=== PATIENT | female | born 1935 | race Caucasian/White ===

== ENCOUNTER 2017-05-12 15:11 | Inpatient (IN) | payer MEDICARE, OTHER ==
--- NOTE | 2017-05-12 16:39 | History and Physical Report ---
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 Developed left hip pain 3 weeks prior to evaluation and was found to have an incomplete left femoral neck hip fracture on MRI scan. Patient denies any recent falls or trauma. Had precutaneous hip pinning done. No noted intra or postoperative complications. Patient continues to have some pain with ambulation and feels unsteady on her feet. Has been transferred to this institution for further rehab services. 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: CVA (during surgery in 2008, no residual), Dementia (mild) Musculoskeletal: Other (paget's disease) Endocrine: Diabetes (type 2) - Past Surgical History Past Surgical History: Cataract Removal (OU), Total Knee Replacement (left), Other (benign ventricular tumor removed, cardiac stent) - Past Family History Mother Family History: Cancer (leukemia), Father Family History: CAD, Brother 1 Family History: Cancer, Other (hx of DVT) - Past Social History Smoke: No Alcohol: None Drugs: None Lives: With Family (daughter) Domestic Violence: Negative - Health Maintenance Health Maintenance: Influenza Vaccine. denies: Pneumococcal Vaccine Pneumonia Vaccine: No Resuscitation Status: Full code - Unable to Obtain History Unable to Obtain: No Review of Systems - Review of Systems Constitutional: negative: Fever, Chills Eyes: negative: pain, vision change ENT: negative: Ear Pain, Ear Discharge, Nose Pain, Nose Discharge, Nose Congestion, Mouth Pain, Throat Pain Respiratory: negative: Cough, Dry, Shortness of Breath, Hemoptysis, SOB with Excertion, Pleuritic Pain, Sputum, Wheezing Cardiovascular: negative: Chest Pain, Palpitations, Orthopnea, Paroxysmal Noc. Dyspnea, Light Headedness Gastrointestinal: negative: Nausea, Vomiting, Abdominal Pain, Diarrhea, Constipation, Melena, Hematochezia Genitourinary: negative: Dysuria, Frequency, Incontinence, Hematuria, Retention Musculoskeletal: Leg Pain (left hip and knee). negative: Neck Pain, Shoulder Pain, Arm Pain Skin: negative: Rash Neurological: Confusion (mild). negative: Weakness, Numbness, Incoordination - Medications/Allergies Allergies/Adverse Reactions: Allergies Allergy/AdvReac Type Severity Reaction Status Date / Time Penicillins Allergy Severe Anaphylaxis Verified 05/13/17 08:25 latex Allergy Intermediate Itchy Skin Verified 05/13/17 08:25 Home Medications: Home Medications Aspirin [Oralia] 325 mg PO BID 05/12/17 Benazepril HCl [Lotensin] 40 mg PO DAILY 05/12/17 Calcium Citrate [Calcitrate] 200 mg PO DAILY 05/12/17 Carvedilol [Coreg] 12.5 mg PO BID 05/12/17 Cyanocobalamin (Vitamin B-12) [Vitamin B-12] 2,500 mcg SL DAILY 05/12/17 Donepezil HCl [Donepezil HCl] 10 mg PO HS 05/12/17 Furosemide [Lasix] 40 mg PO DAILY 05/12/17 Glimepiride [Glimepiride] 2 mg PO DAILY 05/12/17 Hydrocodone/Acetaminophen [[place] 5-325 Tablet] 1 each Q6 PRN 05/12/17 Metformin HCl [Glucophage] 1,000 mg PO BID 05/12/17 Multivit with Calcium,Iron,Min [Tab A Leobardo] 1 each PO DAILY 05/12/17 Naproxen [Naproxen] 250 mg PO Q12 PRN 05/12/17 Pravastatin Sodium [Pravastatin Sodium] 40 mg PO DAILY 05/12/17 Sennosides/Docusate Sodium [Docusate Sodium-Senna Tablet] 2 each PO HS 05/12/17 amLODIPine BESYLATE [Norvasc] 5 mg PO DAILY 05/12/17 Exam - Exam General: Alert, Oriented to Person, Oriented to Place, Oriented to Time, Cooperative, No acute distress HEENT: Atraumatic, PERRLA, EOMI, Mouth Mucous membr. moist/[place], Nose Mucous membr. moist/[place] Neck: Normal Range of Motion Lungs: Clear to auscultation, Normal air movement, Speaks full Sentences Cardiovascular: Regular rate, Normal S1, Normal S2, No murmurs. No: Gallops, Rubs, Murmur Abdomen: Normal bowel sounds, Soft, No tenderness, No hepatospenomegaly, No masses. No: Distended Integumentary: Normal, [place], Warm, Dry Extremities: No clubbing, No cyanosis, No edema, Normal pulses, No tenderness/ swelling Neurological: Normal gait, Normal speech, Strength Equal Bilat, Normal tone, Sensation intact, Cranial nerves 3-12 NL, Reflexes 2+ Psych/Mental Status: Mental status NL, Mood NL, Appropriate Affect, Intact Judgment Assessment/Plan - Assessment/Plan (1) Gait disturbance Status: Acute Current Visit: Yes Assessment: Will start OT and PT, hope to return to home (2) Fracture of left hip Status: Acute Current Visit: Yes Comment: Incomplete due to Paget's disease , precutaneous pinning done (3) Diabetes type 2, controlled Status: Acute Current Visit: Yes Qualifiers: Diabetes mellitus complication status: without complication 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 insulin use: without chcf use Qualified Code(s): E11.9 - Type 2 diabetes mellitus without complications Assessment: Patient has been on sliding scale insulin since admission, will continue at this time (4) Essential hypertension Status: Acute Current Visit: Yes Assessment: Will continue with home meds (5) Paget's disease of bone Status: Acute Current Visit: Yes Assessment: stable (6) Dementia Status: Acute Current Visit: Yes Qualifiers: Dementia type: Alzheimer's disease Assessment: stable VTE Assessment - RISK FACTOR SCORE VTE RISK FACTOR SCORES: AGE OVER 60 YEARS, HIP, PELVIS, OR LEG FX - RISK VTE MODERATE RISK: SCORE OF 2 (RISK PROXIMAL DVT 2-4%) PROPHYAXIS NEEDED ( Pateint is on asprin therapy for VTE prophylaxis)
[2017-05-12] MEDS ORDERED: LISINOPRIL 20 MG TABLET PO ONE (16:45)
[2017-05-12] MEDS ORDERED: ACETAMINOPHEN 500 MG TABLET PO PRN (16:49)
[2017-05-12] MEDS ORDERED: traMADol HCL 50 MG TABLET PO SCH (17:00)
[2017-05-12] MEDS ORDERED: SIMVASTATIN 40 MG TABLET ONE (18:01)
[2017-05-12] MEDS: traMADol HCL 50 MG TABLET PO PRN ×2 (18:09→22:35)
[2017-05-12 18:35] VITALS: BMI 32.3
[2017-05-12] MEDS: DONEPEZIL HCL 5 MG TABLET PO SCH (19:52)
[2017-05-12] MEDS: ASPIRIN 325 MG TABLET PO SCH (19:53)
[2017-05-12] MEDS: CARVEDILOL 12.5 MG TABLET PO SCH (19:53)
[2017-05-12] MEDS: CYANOCOBALAMIN 1,000 MCG TABLET PO SCH (19:54)
[2017-05-12] MEDS: SIMVASTATIN 20 MG TABLET PO SCH (19:54)
[2017-05-12] MEDS: SENNOSIDES/DOCUSATE SODIUM 1 EACH TABLET PO SCH (19:54)
[2017-05-12] MEDS: NAPROXEN 250 MG TABLET PO PRN (20:05)
[2017-05-13] MEDS: GLIMEPIRIDE 2 MG TABLET PO SCH (07:25)
[2017-05-13] MEDS: INSULIN REGULAR, HUMAN 100 UNIT/ML 3ML VIAL SQ SCH ×3 (07:32→17:13)
[2017-05-13] MEDS: ASPIRIN 325 MG TABLET PO SCH ×2 (08:19→19:23)
[2017-05-13] MEDS: CARVEDILOL 12.5 MG TABLET PO SCH ×2 (08:20→19:24)
[2017-05-13] MEDS: amLODIPine BESYLATE 5 MG TABLET PO SCH (08:20)
[2017-05-13] MEDS: FUROSEMIDE 40 MG TABLET PO SCH (08:20)
[2017-05-13] MEDS: CALCIUM CARB 500 MG TAB.CHEW PO SCH (08:21)
[2017-05-13] MEDS: MULTIVITAMIN 1 EACH TABLET PO SCH (08:21)
[2017-05-13] MEDS: CYANOCOBALAMIN 1,000 MCG TABLET PO SCH ×2 (08:21→19:24)
[2017-05-13] MEDS: SIMVASTATIN 20 MG TABLET PO SCH (19:25)
[2017-05-13] MEDS: DONEPEZIL HCL 5 MG TABLET PO SCH (19:27)
[2017-05-13] MEDS: SENNOSIDES/DOCUSATE SODIUM 1 EACH TABLET PO SCH (19:27)
[2017-05-13] MEDS ORDERED: DOCUSATE SODIUM 100 MG CAPSULE ONE (21:38)
[2017-05-14] MEDS: traMADol HCL 50 MG TABLET PO PRN ×4 (02:30→22:57)
[2017-05-14] MEDS ORDERED: FUROSEMIDE 20 MG TABLET PO ONE (04:45)
[2017-05-14] MEDS ORDERED: CALCIUM CARB 500/VIT D 200 1 EACH TABLET ONE (04:46)
[2017-05-14] MEDS: NAPROXEN 250 MG TABLET PO PRN (06:07)
[2017-05-14] MEDS: GLIMEPIRIDE 2 MG TABLET PO SCH (07:13)
[2017-05-14] MEDS: INSULIN REGULAR, HUMAN 100 UNIT/ML 3ML VIAL SQ SCH ×3 (07:18→16:45)
[2017-05-14] MEDS: CARVEDILOL 12.5 MG TABLET PO SCH ×2 (08:29→19:57)
[2017-05-14] MEDS: ASPIRIN 325 MG TABLET PO SCH ×2 (08:29→19:57)
[2017-05-14] MEDS: FUROSEMIDE 40 MG TABLET PO SCH (08:30)
[2017-05-14] MEDS: MULTIVITAMIN 1 EACH TABLET PO SCH (08:31)
[2017-05-14] MEDS: amLODIPine BESYLATE 5 MG TABLET PO SCH (08:31)
[2017-05-14] MEDS: CYANOCOBALAMIN 1,000 MCG TABLET PO SCH ×2 (08:32→19:58)
[2017-05-14] MEDS: CALCIUM CARB 500 MG TAB.CHEW PO SCH (08:37)
[2017-05-14] MEDS ORDERED: SIMVASTATIN 40 MG TABLET ONE (15:20)
[2017-05-14] MEDS: DONEPEZIL HCL 5 MG TABLET PO SCH (19:56)
[2017-05-14] MEDS: SENNOSIDES/DOCUSATE SODIUM 1 EACH TABLET PO SCH (19:58)
[2017-05-14] MEDS: SIMVASTATIN 20 MG TABLET PO SCH (19:59)
[2017-05-15] MEDS: NAPROXEN 250 MG TABLET PO PRN ×2 (03:08→22:47)
[2017-05-15] MEDS: traMADol HCL 50 MG TABLET PO PRN ×4 (03:08→22:47)
[2017-05-15] MEDS: INSULIN REGULAR, HUMAN 100 UNIT/ML 3ML VIAL SQ SCH ×3 (07:43→16:43)
[2017-05-15] MEDS: GLIMEPIRIDE 2 MG TABLET PO SCH (07:43)
[2017-05-15] MEDS: ASPIRIN 325 MG TABLET PO SCH ×2 (08:48→20:27)
[2017-05-15] MEDS: CARVEDILOL 12.5 MG TABLET PO SCH ×2 (08:49→20:32)
[2017-05-15] MEDS: amLODIPine BESYLATE 5 MG TABLET PO SCH (08:50)
[2017-05-15] MEDS: FUROSEMIDE 40 MG TABLET PO SCH (08:50)
[2017-05-15] MEDS: CYANOCOBALAMIN 1,000 MCG TABLET PO SCH ×2 (08:52→20:32)
[2017-05-15] MEDS: MULTIVITAMIN 1 EACH TABLET PO SCH (08:52)
[2017-05-15] MEDS: CALCIUM CARB 500 MG TAB.CHEW PO SCH (08:53)
[2017-05-15 12:51] LABS: BASOPHILS % 0.7 (0.0-1.5); EOSINOPHILS % 3.8 % (0.0-6.8); MEAN CORPUSCULAR HEMOGLOBIN 29.8 pg (28.0-34.0); NEUTROPHILS # 5.7 # k/uL (1.4-7.7)
[2017-05-15 13:08] LABS: eGFR (African) > 60; eGFR (Non-African) > 60
[2017-05-15] MEDS: DONEPEZIL HCL 5 MG TABLET PO SCH (20:27)
[2017-05-15] MEDS: SENNOSIDES/DOCUSATE SODIUM 1 EACH TABLET PO SCH (20:29)
[2017-05-15] MEDS: SIMVASTATIN 20 MG TABLET PO SCH (20:30)
[2017-05-16] MEDS: GLIMEPIRIDE 2 MG TABLET PO SCH (07:40)
[2017-05-16] MEDS: INSULIN REGULAR, HUMAN 100 UNIT/ML 3ML VIAL SQ SCH ×3 (07:41→16:40)
[2017-05-16] MEDS: amLODIPine BESYLATE 5 MG TABLET PO SCH (08:36)
[2017-05-16] MEDS: CALCIUM CARB 500 MG TAB.CHEW PO SCH (08:36)
[2017-05-16] MEDS: FUROSEMIDE 40 MG TABLET PO SCH (08:36)
[2017-05-16] MEDS: ASPIRIN 325 MG TABLET PO SCH ×2 (08:36→19:43)
[2017-05-16] MEDS: MULTIVITAMIN 1 EACH TABLET PO SCH (08:36)
[2017-05-16] MEDS: CARVEDILOL 12.5 MG TABLET PO SCH ×2 (08:36→19:45)
[2017-05-16] MEDS: CYANOCOBALAMIN 1,000 MCG TABLET PO SCH ×2 (08:37→19:45)
[2017-05-16] MEDS: SIMVASTATIN 20 MG TABLET PO SCH (19:44)
[2017-05-16] MEDS: DONEPEZIL HCL 5 MG TABLET PO SCH (19:44)
[2017-05-16] MEDS: SENNOSIDES/DOCUSATE SODIUM 1 EACH TABLET PO SCH (19:46)
[2017-05-17] MEDS: NAPROXEN 250 MG TABLET PO PRN ×2 (04:15→19:24)
[2017-05-17] MEDS: traMADol HCL 50 MG TABLET PO PRN ×3 (04:15→23:47)
[2017-05-17] MEDS: GLIMEPIRIDE 2 MG TABLET PO SCH (07:25)
[2017-05-17] MEDS: INSULIN REGULAR, HUMAN 100 UNIT/ML 3ML VIAL SQ SCH ×3 (07:57→16:38)
[2017-05-17] MEDS: CARVEDILOL 12.5 MG TABLET PO SCH ×2 (08:49→19:25)
[2017-05-17] MEDS: ASPIRIN 325 MG TABLET PO SCH ×2 (08:49→19:25)
[2017-05-17] MEDS: FUROSEMIDE 40 MG TABLET PO SCH (08:49)
[2017-05-17] MEDS: MULTIVITAMIN 1 EACH TABLET PO SCH (08:50)
[2017-05-17] MEDS: CALCIUM CARB 500 MG TAB.CHEW PO SCH (08:50)
[2017-05-17] MEDS: amLODIPine BESYLATE 5 MG TABLET PO SCH (08:50)
[2017-05-17] MEDS: CYANOCOBALAMIN 1,000 MCG TABLET PO SCH ×2 (08:50→19:24)
[2017-05-17] MEDS: SENNOSIDES/DOCUSATE SODIUM 1 EACH TABLET PO SCH (19:24)
[2017-05-17] MEDS: SIMVASTATIN 20 MG TABLET PO SCH (19:24)
[2017-05-17] MEDS: DONEPEZIL HCL 5 MG TABLET PO SCH (19:25)
[2017-05-18] MEDS: INSULIN REGULAR, HUMAN 100 UNIT/ML 3ML VIAL SQ SCH ×3 (07:40→17:02)
[2017-05-18] MEDS: GLIMEPIRIDE 2 MG TABLET PO SCH (07:41)
[2017-05-18] MEDS: CYANOCOBALAMIN 1,000 MCG TABLET PO SCH ×2 (09:55→20:03)
[2017-05-18] MEDS: NAPROXEN 250 MG TABLET PO PRN ×2 (09:55→22:38)
[2017-05-18] MEDS: ASPIRIN 325 MG TABLET PO SCH ×2 (09:55→20:01)
[2017-05-18] MEDS: CARVEDILOL 12.5 MG TABLET PO SCH ×2 (09:55→20:02)
[2017-05-18] MEDS: MULTIVITAMIN 1 EACH TABLET PO SCH (09:55)
[2017-05-18] MEDS: CALCIUM CARB 500 MG TAB.CHEW PO SCH (09:55)
[2017-05-18] MEDS: amLODIPine BESYLATE 5 MG TABLET PO SCH (09:55)
[2017-05-18] MEDS: FUROSEMIDE 40 MG TABLET PO SCH (09:55)
[2017-05-18] MEDS: DONEPEZIL HCL 5 MG TABLET PO SCH (20:01)
[2017-05-18] MEDS: SENNOSIDES/DOCUSATE SODIUM 1 EACH TABLET PO SCH (20:02)
[2017-05-18] MEDS: SIMVASTATIN 20 MG TABLET PO SCH (20:03)
[2017-05-18] MEDS: traMADol HCL 50 MG TABLET PO PRN (22:38)
[2017-05-19] MEDS: NAPROXEN 250 MG TABLET PO PRN ×2 (08:10→20:08)
[2017-05-19] MEDS: CARVEDILOL 12.5 MG TABLET PO SCH ×2 (08:10→20:06)
[2017-05-19] MEDS: CYANOCOBALAMIN 1,000 MCG TABLET PO SCH ×2 (08:10→20:05)
[2017-05-19] MEDS: GLIMEPIRIDE 2 MG TABLET PO SCH (08:10)
[2017-05-19] MEDS: ASPIRIN 325 MG TABLET PO SCH ×2 (08:10→20:06)
[2017-05-19] MEDS: INSULIN REGULAR, HUMAN 100 UNIT/ML 3ML VIAL SQ SCH ×3 (08:10→16:38)
[2017-05-19] MEDS: MULTIVITAMIN 1 EACH TABLET PO SCH (08:11)
[2017-05-19] MEDS: FUROSEMIDE 40 MG TABLET PO SCH (08:11)
[2017-05-19] MEDS: amLODIPine BESYLATE 5 MG TABLET PO SCH (08:11)
[2017-05-19] MEDS: CALCIUM CARB 500 MG TAB.CHEW PO SCH (08:11)
[2017-05-19] MEDS: SIMVASTATIN 20 MG TABLET PO SCH (20:03)
[2017-05-19] MEDS: SENNOSIDES/DOCUSATE SODIUM 1 EACH TABLET PO SCH (20:05)
[2017-05-19] MEDS: DONEPEZIL HCL 5 MG TABLET PO SCH (20:06)
[2017-05-20] MEDS: GLIMEPIRIDE 2 MG TABLET PO SCH (05:54)
[2017-05-20] MEDS: INSULIN REGULAR, HUMAN 100 UNIT/ML 3ML VIAL SQ SCH ×3 (06:00→16:23)
[2017-05-20] MEDS: CARVEDILOL 12.5 MG TABLET PO SCH ×2 (08:23→21:16)
[2017-05-20] MEDS: ASPIRIN 325 MG TABLET PO SCH ×2 (08:23→21:15)
[2017-05-20] MEDS: CALCIUM CARB 500 MG TAB.CHEW PO SCH (08:24)
[2017-05-20] MEDS: amLODIPine BESYLATE 5 MG TABLET PO SCH (08:24)
[2017-05-20] MEDS: MULTIVITAMIN 1 EACH TABLET PO SCH (08:24)
[2017-05-20] MEDS: FUROSEMIDE 40 MG TABLET PO SCH (08:24)
[2017-05-20] MEDS: CYANOCOBALAMIN 1,000 MCG TABLET PO SCH ×2 (08:25→21:17)
[2017-05-20] MEDS: DONEPEZIL HCL 5 MG TABLET PO SCH (21:14)
[2017-05-20] MEDS: SIMVASTATIN 20 MG TABLET PO SCH (21:17)
[2017-05-20] MEDS: SENNOSIDES/DOCUSATE SODIUM 1 EACH TABLET PO SCH (21:30)
[2017-05-21] MEDS: GLIMEPIRIDE 2 MG TABLET PO SCH (06:08)
[2017-05-21] MEDS: INSULIN REGULAR, HUMAN 100 UNIT/ML 3ML VIAL SQ SCH ×3 (07:03→16:44)
[2017-05-21] MEDS: CARVEDILOL 12.5 MG TABLET PO SCH ×2 (09:25→20:14)
[2017-05-21] MEDS: ASPIRIN 325 MG TABLET PO SCH ×2 (09:25→20:14)
[2017-05-21] MEDS: MULTIVITAMIN 1 EACH TABLET PO SCH (09:26)
[2017-05-21] MEDS: CALCIUM CARB 500 MG TAB.CHEW PO SCH (09:26)
[2017-05-21] MEDS: amLODIPine BESYLATE 5 MG TABLET PO SCH (09:26)
[2017-05-21] MEDS: FUROSEMIDE 40 MG TABLET PO SCH (09:26)
[2017-05-21] MEDS: CYANOCOBALAMIN 1,000 MCG TABLET PO SCH ×2 (09:26→20:15)
[2017-05-21] MEDS: DONEPEZIL HCL 5 MG TABLET PO SCH (20:14)
[2017-05-21] MEDS: SIMVASTATIN 20 MG TABLET PO SCH (20:15)
[2017-05-21] MEDS: SENNOSIDES/DOCUSATE SODIUM 1 EACH TABLET PO SCH (20:15)
[2017-05-22] MEDS: INSULIN REGULAR, HUMAN 100 UNIT/ML 3ML VIAL SQ SCH ×3 (07:41→17:08)
[2017-05-22] MEDS: GLIMEPIRIDE 2 MG TABLET PO SCH (07:41)
[2017-05-22] MEDS: ASPIRIN 325 MG TABLET PO SCH ×2 (08:34→20:05)
[2017-05-22] MEDS: CARVEDILOL 12.5 MG TABLET PO SCH ×2 (08:34→20:05)
[2017-05-22] MEDS: FUROSEMIDE 40 MG TABLET PO SCH (08:34)
[2017-05-22] MEDS: amLODIPine BESYLATE 5 MG TABLET PO SCH (08:34)
[2017-05-22] MEDS: CYANOCOBALAMIN 1,000 MCG TABLET PO SCH ×2 (08:35→20:06)
[2017-05-22] MEDS: MULTIVITAMIN 1 EACH TABLET PO SCH (08:35)
[2017-05-22] MEDS: CALCIUM CARB 500 MG TAB.CHEW PO SCH (08:35)
[2017-05-22] MEDS: NAPROXEN 250 MG TABLET PO PRN (08:36)
[2017-05-22] MEDS: DONEPEZIL HCL 5 MG TABLET PO SCH (20:05)
[2017-05-22] MEDS: SIMVASTATIN 20 MG TABLET PO SCH (20:06)
[2017-05-22] MEDS: SENNOSIDES/DOCUSATE SODIUM 1 EACH TABLET PO SCH (20:06)
[2017-05-23] MEDS: INSULIN REGULAR, HUMAN 100 UNIT/ML 3ML VIAL SQ SCH ×3 (08:06→17:11)
[2017-05-23] MEDS: GLIMEPIRIDE 2 MG TABLET PO SCH (08:07)
[2017-05-23] MEDS: NAPROXEN 250 MG TABLET PO PRN ×2 (08:28→21:05)
[2017-05-23] MEDS: amLODIPine BESYLATE 5 MG TABLET PO SCH (08:29)
[2017-05-23] MEDS: CARVEDILOL 12.5 MG TABLET PO SCH ×2 (08:29→21:07)
[2017-05-23] MEDS: FUROSEMIDE 40 MG TABLET PO SCH (08:29)
[2017-05-23] MEDS: ASPIRIN 325 MG TABLET PO SCH ×2 (08:29→21:05)
[2017-05-23] MEDS: MULTIVITAMIN 1 EACH TABLET PO SCH (08:29)
[2017-05-23] MEDS: CYANOCOBALAMIN 1,000 MCG TABLET PO SCH ×2 (08:30→21:07)
[2017-05-23] MEDS: CALCIUM CARB 500 MG TAB.CHEW PO SCH (08:30)
[2017-05-23] MEDS: SIMVASTATIN 20 MG TABLET PO SCH (21:00)
[2017-05-23] MEDS: SENNOSIDES/DOCUSATE SODIUM 1 EACH TABLET PO SCH (21:03)
[2017-05-23] MEDS: DONEPEZIL HCL 5 MG TABLET PO SCH (21:06)
[2017-05-24] MEDS: GLIMEPIRIDE 2 MG TABLET PO SCH (07:25)
[2017-05-24] MEDS: INSULIN REGULAR, HUMAN 100 UNIT/ML 3ML VIAL SQ SCH ×2 (07:26→12:58)
[2017-05-24] MEDS: ASPIRIN 325 MG TABLET PO SCH ×2 (09:19→21:07)
[2017-05-24] MEDS: FUROSEMIDE 40 MG TABLET PO SCH (09:20)
[2017-05-24] MEDS: amLODIPine BESYLATE 5 MG TABLET PO SCH (09:20)
[2017-05-24] MEDS: CARVEDILOL 12.5 MG TABLET PO SCH ×2 (09:20→21:08)
[2017-05-24] MEDS: MULTIVITAMIN 1 EACH TABLET PO SCH (09:21)
[2017-05-24] MEDS: CYANOCOBALAMIN 1,000 MCG TABLET PO SCH ×2 (09:21→21:09)
[2017-05-24] MEDS: CALCIUM CARB 500 MG TAB.CHEW PO SCH (09:21)
[2017-05-24] MEDS: traMADol HCL 50 MG TABLET PO PRN (12:56)
[2017-05-24] MEDS: DONEPEZIL HCL 5 MG TABLET PO SCH (21:06)
[2017-05-24] MEDS: SENNOSIDES/DOCUSATE SODIUM 1 EACH TABLET PO SCH (21:09)
[2017-05-24] MEDS: SIMVASTATIN 20 MG TABLET PO SCH (21:09)
[2017-05-25] MEDS: GLIMEPIRIDE 2 MG TABLET PO SCH (07:33)
[2017-05-25] MEDS: CARVEDILOL 12.5 MG TABLET PO SCH ×2 (08:16→21:02)
[2017-05-25] MEDS: FUROSEMIDE 40 MG TABLET PO SCH (08:16)
[2017-05-25] MEDS: ASPIRIN 325 MG TABLET PO SCH ×2 (08:16→20:59)
[2017-05-25] MEDS: traMADol HCL 50 MG TABLET PO PRN (08:16)
[2017-05-25] MEDS: NAPROXEN 250 MG TABLET PO PRN (08:16)
[2017-05-25] MEDS: amLODIPine BESYLATE 5 MG TABLET PO SCH (08:17)
[2017-05-25] MEDS: CYANOCOBALAMIN 1,000 MCG TABLET PO SCH ×2 (08:17→21:03)
[2017-05-25] MEDS: CALCIUM CARB 500 MG TAB.CHEW PO SCH (08:17)
[2017-05-25] MEDS: MULTIVITAMIN 1 EACH TABLET PO SCH (08:17)
--- NOTE | 2017-05-25 08:41 | Inpatient Progress Note ---
Subjective - Required Recertification Statement I anticipate X number of days because-include discharge plan: 14 days - Review of Systems Events since last encounter: Patient continues to complain of pain in the left knee and hip area. Does seem to be getting some better with PT and OT. Has been making some progress with therapy. BS have been stable, no hypoglycemic episodes. HTN stable. Objective - Exam Vitals and I&O: Vital Signs Temp 97.8 F 05/25/17 08:11 Pulse 71 05/25/17 08:11 Resp 18 05/25/17 08:11 BP 133/68 05/25/17 08:11 Pulse Ox 97 05/25/17 08:11 Intake & Output 05/24/17 05/24/17 05/25/17 11:59 23:59 11:59 Intake Total 720 480 840 Balance 720 480 840 Intake: Oral 720 480 840 Other: Voiding Method Toilet Toilet # Voids 5 5 # Bowel Movements 1 General: Alert, Oriented to Person, Oriented to Place, Cooperative. No: Oriented to Time Neck: Supple, No JVD Lungs: Clear to auscultation, Normal air movement, Speaks full Sentences. No: Wheezes, Rales, Rhonchi Cardiovascular: Regular rate, Normal S1, Normal S2, No murmurs Abdomen: Normal bowel sounds, Soft, No tenderness, No hepatospenomegaly Extremities: No edema Skin: Normal, [place], Warm, Dry Neurological: Normal speech, Strength Equal Bilat Psych/Mental Status: Mental status NL, Mood NL, Appropriate Affect - Results Results: Laboratory Results WBC 8.00 K/ul (4.00-12.00) 05/15/17 12:45 RBC 4.05 M/ul (3.90-5.20) 05/15/17 12:45 Hgb 12.1 g/dL (12.0-16.0) 05/15/17 12:45 Hct 36.8 % (34.5-46.5) 05/15/17 12:45 MCV 91.0 fl (80.0-100.0) 05/15/17 12:45 MCH 29.8 pg (28.0-34.0) 05/15/17 12:45 MCHC 32.8 g/dL (30.0-36.0) 05/15/17 12:45 RDW 13.1 % (11.3-14.3) 05/15/17 12:45 Plt Count 268 K/mm3 (130-400) 05/15/17 12:45 Neut % (Auto) 70.9 % (39.0-79.0) 05/15/17 12:45 Lymph % (Auto) 17.4 % (16.0-50.0) 05/15/17 12:45 [place] % (Auto) 6.0 % (0.0-11.0) 05/15/17 12:45 Eos % (Auto) 3.8 % (0.0-6.8) 05/15/17 12:45 Baso % (Auto) 0.7 (0.0-1.5) 05/15/17 12:45 Neut # (Auto) 5.7 # k/uL (1.4-7.7) 05/15/17 12:45 Lymph # (Auto) 1.4 # k/uL (0.6-4.0) 05/15/17 12:45 [place] # (Auto) 0.5 # k/uL (0.0-0.9) 05/15/17 12:45 Eos # (Auto) 0.3 # k/uL (0.0-0.6) 05/15/17 12:45 Baso # (Auto) 0.0 # k/uL (0.0-0.5) 05/15/17 12:45 Reactive Lymphs % 1.2 % (0.0-5.0) 05/15/17 12:45 Reactive Lymphs # 0.1 # k/uL (0.0-0.8) 05/15/17 12:45 Sodium 133 mmol/L (136-145) L 05/15/17 12:45 Potassium 4.4 mmol/L (3.5-5.0) 05/15/17 12:45 Chloride 102 mmol/L (98-110) 05/15/17 12:45 Carbon Dioxide 28 mmol/L (20-32) 05/15/17 12:45 BUN 17 mg/dL (10-26) 05/15/17 12:45 Creatinine 0.7 mg/dL (0.4-1.5) 05/15/17 12:45 Estimated Creat Clear 106 05/15/17 12:45 Est GFR ( Amer) > 60 (60-) 05/15/17 12:45 Est GFR (Non-Af Amer) > 60 (60-) 05/15/17 12:45 Glucose 269 mg/dL (70-99) H 05/15/17 12:45 Calcium 9.1 mg/dL (8.5-10.5) 05/15/17 12:45 Total Bilirubin 0.4 mg/dL (0.2-1.2) 05/15/17 12:45 AST 15 U/L (0-41) 05/15/17 12:45 ALT 16 U/L (0-45) 05/15/17 12:45 Alkaline Phosphatase 95 U/L (46-116) 05/15/17 12:45 Total Protein 7.1 g/dL (6.0-8.5) 05/15/17 12:45 Albumin 4.1 g/dL (3.0-5.5) 05/15/17 12:45 Assessment/Plan - Assessment/Plan (1) Gait disturbance Status: Acute Current Visit: Yes Assessment: improving (2) Fracture of left hip Status: Acute Current Visit: Yes Assessment: stable (3) Diabetes type 2, controlled Status: Acute Current Visit: Yes Assessment: stable, on sliding scale (4) Essential hypertension Status: Acute Current Visit: Yes (5) Paget's disease of bone Status: Acute Current Visit: Yes Assessment: stable (6) Dementia Status: Acute Current Visit: Yes Assessment: stable with no behavioral problems
--- NOTE | 2017-05-25 09:00 | Inpatient Progress Note ---
Subjective - Required Recertification Statement I anticipate X number of days because-include discharge plan: 14 days - Review of Systems Events since last encounter: Patient was seen for recheck by orthopedics and seems to be doing well. No changes in therapy noted. Patient still has some pain in the hip and left knee. Hip pain does not bother her much. The left knee pain continues to improve. No constipation problems noted. DM has been stable, is getting only a small amount of insulin at this time. HTN is stable, no chest pain or pressure noted. Pulmonary: Denies: Dyspnea, Cough Cardiovascular: Denies: Chest Pain, Palpitations Gastrointestinal: Denies: Nausea, Vomiting, Abdominal Pain, Constipation Genitourinary: Denies: Dysuria, Frequency Musculoskeletal: Leg Pain Objective - Exam Vitals and I&O: Vital Signs Temp 97.8 F 05/25/17 08:11 Pulse 71 05/25/17 08:11 Resp 18 05/25/17 08:11 BP 133/68 05/25/17 08:11 Pulse Ox 97 05/25/17 08:11 Intake & Output 05/24/17 05/24/17 05/25/17 11:59 23:59 11:59 Intake Total 720 480 840 Balance 720 480 840 Intake: Oral 720 480 840 Other: Voiding Method Toilet Toilet # Voids 5 5 # Bowel Movements 1 General: Alert, Oriented to Person, Oriented to Place, Oriented to Time, Cooperative, No acute distress Neck: Supple, No JVD Lungs: Clear to auscultation, Normal air movement, Speaks full Sentences. No: Wheezes, Rales, Rhonchi Cardiovascular: Regular rate, Normal S1, Normal S2, No murmurs Abdomen: Normal bowel sounds, Soft, No tenderness Extremities: No clubbing, No cyanosis, No edema Skin: Normal, [place], Warm, Dry Neurological: Normal speech Psych/Mental Status: Mental status NL, Mood NL, Appropriate Affect - Results Results: Laboratory Results WBC 8.00 K/ul (4.00-12.00) 05/15/17 12:45 RBC 4.05 M/ul (3.90-5.20) 05/15/17 12:45 Hgb 12.1 g/dL (12.0-16.0) 05/15/17 12:45 Hct 36.8 % (34.5-46.5) 05/15/17 12:45 MCV 91.0 fl (80.0-100.0) 05/15/17 12:45 MCH 29.8 pg (28.0-34.0) 05/15/17 12:45 MCHC 32.8 g/dL (30.0-36.0) 05/15/17 12:45 RDW 13.1 % (11.3-14.3) 05/15/17 12:45 Plt Count 268 K/mm3 (130-400) 05/15/17 12:45 Neut % (Auto) 70.9 % (39.0-79.0) 05/15/17 12:45 Lymph % (Auto) 17.4 % (16.0-50.0) 05/15/17 12:45 [place] % (Auto) 6.0 % (0.0-11.0) 05/15/17 12:45 Eos % (Auto) 3.8 % (0.0-6.8) 05/15/17 12:45 Baso % (Auto) 0.7 (0.0-1.5) 05/15/17 12:45 Neut # (Auto) 5.7 # k/uL (1.4-7.7) 05/15/17 12:45 Lymph # (Auto) 1.4 # k/uL (0.6-4.0) 05/15/17 12:45 [place] # (Auto) 0.5 # k/uL (0.0-0.9) 05/15/17 12:45 Eos # (Auto) 0.3 # k/uL (0.0-0.6) 05/15/17 12:45 Baso # (Auto) 0.0 # k/uL (0.0-0.5) 05/15/17 12:45 Reactive Lymphs % 1.2 % (0.0-5.0) 05/15/17 12:45 Reactive Lymphs # 0.1 # k/uL (0.0-0.8) 05/15/17 12:45 Sodium 133 mmol/L (136-145) L 05/15/17 12:45 Potassium 4.4 mmol/L (3.5-5.0) 05/15/17 12:45 Chloride 102 mmol/L (98-110) 05/15/17 12:45 Carbon Dioxide 28 mmol/L (20-32) 05/15/17 12:45 BUN 17 mg/dL (10-26) 05/15/17 12:45 Creatinine 0.7 mg/dL (0.4-1.5) 05/15/17 12:45 Estimated Creat Clear 106 05/15/17 12:45 Est GFR ( Amer) > 60 (60-) 05/15/17 12:45 Est GFR (Non-Af Amer) > 60 (60-) 05/15/17 12:45 Glucose 269 mg/dL (70-99) H 05/15/17 12:45 Calcium 9.1 mg/dL (8.5-10.5) 05/15/17 12:45 Total Bilirubin 0.4 mg/dL (0.2-1.2) 05/15/17 12:45 AST 15 U/L (0-41) 05/15/17 12:45 ALT 16 U/L (0-45) 05/15/17 12:45 Alkaline Phosphatase 95 U/L (46-116) 05/15/17 12:45 Total Protein 7.1 g/dL (6.0-8.5) 05/15/17 12:45 Albumin 4.1 g/dL (3.0-5.5) 05/15/17 12:45 Assessment/Plan - Assessment/Plan (1) Gait disturbance Status: Acute Current Visit: Yes Assessment: stable to improving (2) Fracture of left hip Status: Acute Current Visit: Yes Comment: Incomplete due to Paget's disease , precutaneous pinning done Assessment: stable (3) Diabetes type 2, controlled Status: Acute Current Visit: Yes Qualifiers: Diabetes mellitus complication status: without complication Diabetes mellitus director long term care insulin use: without director long term care use Qualified Code(s): E11.9 - Type 2 diabetes mellitus without complications Assessment: stable, will discontinue sliding scale insulin (4) Essential hypertension Status: Acute Current Visit: Yes Assessment: stable (5) Paget's disease of bone Status: Acute Current Visit: Yes (6) Dementia Status: Acute Current Visit: Yes Qualifiers: Dementia type: Alzheimer's disease Assessment: stable
[2017-05-25] MEDS: DONEPEZIL HCL 5 MG TABLET PO SCH (20:58)
[2017-05-25] MEDS: SENNOSIDES/DOCUSATE SODIUM 1 EACH TABLET PO SCH (21:03)
[2017-05-25] MEDS: SIMVASTATIN 20 MG TABLET PO SCH (21:03)
[2017-05-26] MEDS: GLIMEPIRIDE 2 MG TABLET PO SCH (07:53)
[2017-05-26] MEDS: ASPIRIN 325 MG TABLET PO SCH ×2 (07:57→19:31)
[2017-05-26] MEDS: FUROSEMIDE 40 MG TABLET PO SCH (07:57)
[2017-05-26] MEDS: CARVEDILOL 12.5 MG TABLET PO SCH ×2 (07:57→19:31)
[2017-05-26] MEDS: MULTIVITAMIN 1 EACH TABLET PO SCH (07:58)
[2017-05-26] MEDS: CYANOCOBALAMIN 1,000 MCG TABLET PO SCH ×2 (07:58→19:32)
[2017-05-26] MEDS: amLODIPine BESYLATE 5 MG TABLET PO SCH (07:58)
[2017-05-26] MEDS: CALCIUM CARB 500 MG TAB.CHEW PO SCH (07:58)
[2017-05-26] MEDS: SENNOSIDES/DOCUSATE SODIUM 1 EACH TABLET PO SCH (19:26)
[2017-05-26] MEDS: DONEPEZIL HCL 5 MG TABLET PO SCH (19:30)
[2017-05-26] MEDS: SIMVASTATIN 20 MG TABLET PO SCH (19:32)
[2017-05-27] MEDS: GLIMEPIRIDE 2 MG TABLET PO SCH (07:39)
[2017-05-27] MEDS: FUROSEMIDE 40 MG TABLET PO SCH (09:08)
[2017-05-27] MEDS: ASPIRIN 325 MG TABLET PO SCH ×2 (09:08→20:56)
[2017-05-27] MEDS: CARVEDILOL 12.5 MG TABLET PO SCH ×2 (09:08→20:56)
[2017-05-27] MEDS: MULTIVITAMIN 1 EACH TABLET PO SCH (09:09)
[2017-05-27] MEDS: amLODIPine BESYLATE 5 MG TABLET PO SCH (09:10)
[2017-05-27] MEDS: CALCIUM CARB 500 MG TAB.CHEW PO SCH (09:10)
[2017-05-27] MEDS: CYANOCOBALAMIN 1,000 MCG TABLET PO SCH ×2 (09:10→20:57)
[2017-05-27] MEDS: DONEPEZIL HCL 5 MG TABLET PO SCH (20:56)
[2017-05-27] MEDS: SENNOSIDES/DOCUSATE SODIUM 1 EACH TABLET PO SCH (20:57)
[2017-05-27] MEDS: SIMVASTATIN 20 MG TABLET PO SCH (20:57)
[2017-05-28] MEDS: GLIMEPIRIDE 2 MG TABLET PO SCH (07:34)
[2017-05-28] MEDS: CARVEDILOL 12.5 MG TABLET PO SCH ×2 (08:09→20:33)
[2017-05-28] MEDS: ASPIRIN 325 MG TABLET PO SCH ×2 (08:09→20:37)
[2017-05-28] MEDS: FUROSEMIDE 40 MG TABLET PO SCH (08:10)
[2017-05-28] MEDS: CYANOCOBALAMIN 1,000 MCG TABLET PO SCH ×2 (08:10→20:34)
[2017-05-28] MEDS: MULTIVITAMIN 1 EACH TABLET PO SCH (08:10)
[2017-05-28] MEDS: amLODIPine BESYLATE 5 MG TABLET PO SCH (08:10)
[2017-05-28] MEDS: CALCIUM CARB 500 MG TAB.CHEW PO SCH (08:10)
[2017-05-28] MEDS: DONEPEZIL HCL 5 MG TABLET PO SCH (20:33)
[2017-05-28] MEDS: SENNOSIDES/DOCUSATE SODIUM 1 EACH TABLET PO SCH (20:34)
[2017-05-28] MEDS: SIMVASTATIN 20 MG TABLET PO SCH (20:34)
[2017-05-29] MEDS: GLIMEPIRIDE 2 MG TABLET PO SCH (07:48)
[2017-05-29] MEDS: FUROSEMIDE 40 MG TABLET PO SCH (08:10)
[2017-05-29] MEDS: CARVEDILOL 12.5 MG TABLET PO SCH ×2 (08:10→20:17)
[2017-05-29] MEDS: amLODIPine BESYLATE 5 MG TABLET PO SCH (08:10)
[2017-05-29] MEDS: NAPROXEN 250 MG TABLET PO PRN (08:10)
[2017-05-29] MEDS: ASPIRIN 325 MG TABLET PO SCH ×2 (08:10→20:17)
[2017-05-29] MEDS: CYANOCOBALAMIN 1,000 MCG TABLET PO SCH ×2 (08:11→20:19)
[2017-05-29] MEDS: MULTIVITAMIN 1 EACH TABLET PO SCH (08:11)
[2017-05-29] MEDS: CALCIUM CARB 500 MG TAB.CHEW PO SCH (08:11)
[2017-05-29] MEDS: DONEPEZIL HCL 5 MG TABLET PO SCH (20:16)
[2017-05-29] MEDS: SIMVASTATIN 20 MG TABLET PO SCH (20:19)
[2017-05-29] MEDS: SENNOSIDES/DOCUSATE SODIUM 1 EACH TABLET PO SCH (20:19)
[2017-05-30] MEDS: GLIMEPIRIDE 2 MG TABLET PO SCH (08:03)
[2017-05-30] MEDS: FUROSEMIDE 40 MG TABLET PO SCH (08:25)
[2017-05-30] MEDS: ASPIRIN 325 MG TABLET PO SCH ×2 (08:25→19:50)
[2017-05-30] MEDS: MULTIVITAMIN 1 EACH TABLET PO SCH (08:26)
[2017-05-30] MEDS: amLODIPine BESYLATE 5 MG TABLET PO SCH (08:26)
[2017-05-30] MEDS: CYANOCOBALAMIN 1,000 MCG TABLET PO SCH ×2 (08:26→19:51)
[2017-05-30] MEDS: CALCIUM CARB 500 MG TAB.CHEW PO SCH (08:26)
[2017-05-30] MEDS: CARVEDILOL 12.5 MG TABLET PO SCH ×2 (08:27→19:51)
[2017-05-30] MEDS: NAPROXEN 250 MG TABLET PO PRN (08:27)
[2017-05-30] MEDS: DONEPEZIL HCL 5 MG TABLET PO SCH (19:50)
[2017-05-30] MEDS: SENNOSIDES/DOCUSATE SODIUM 1 EACH TABLET PO SCH (19:51)
[2017-05-30] MEDS: SIMVASTATIN 20 MG TABLET PO SCH (19:51)
[2017-05-31] MEDS: GLIMEPIRIDE 2 MG TABLET PO SCH (07:28)
[2017-05-31] MEDS: amLODIPine BESYLATE 5 MG TABLET PO SCH (08:21)
[2017-05-31] MEDS: ASPIRIN 325 MG TABLET PO SCH ×2 (08:21→21:49)
[2017-05-31] MEDS: CARVEDILOL 12.5 MG TABLET PO SCH ×2 (08:21→21:49)
[2017-05-31] MEDS: FUROSEMIDE 40 MG TABLET PO SCH (08:21)
[2017-05-31] MEDS: MULTIVITAMIN 1 EACH TABLET PO SCH (08:22)
[2017-05-31] MEDS: CYANOCOBALAMIN 1,000 MCG TABLET PO SCH ×2 (08:22→21:50)
[2017-05-31] MEDS: CALCIUM CARB 500 MG TAB.CHEW PO SCH (08:22)
[2017-05-31] MEDS: DONEPEZIL HCL 5 MG TABLET PO SCH (21:48)
[2017-05-31] MEDS: SENNOSIDES/DOCUSATE SODIUM 1 EACH TABLET PO SCH (21:49)
[2017-05-31] MEDS: SIMVASTATIN 20 MG TABLET PO SCH (21:50)
[2017-06-01] MEDS: GLIMEPIRIDE 2 MG TABLET PO SCH (07:28)
[2017-06-01] MEDS: CARVEDILOL 12.5 MG TABLET PO SCH ×2 (09:14→20:05)
[2017-06-01] MEDS: ASPIRIN 325 MG TABLET PO SCH ×2 (09:14→20:05)
[2017-06-01] MEDS: FUROSEMIDE 40 MG TABLET PO SCH (09:16)
[2017-06-01] MEDS: amLODIPine BESYLATE 5 MG TABLET PO SCH (09:17)
[2017-06-01] MEDS: MULTIVITAMIN 1 EACH TABLET PO SCH (09:19)
[2017-06-01] MEDS: CALCIUM CARB 500 MG TAB.CHEW PO SCH (09:19)
[2017-06-01] MEDS: CYANOCOBALAMIN 1,000 MCG TABLET PO SCH ×2 (09:20→20:06)
[2017-06-01] MEDS: DONEPEZIL HCL 5 MG TABLET PO SCH (20:03)
[2017-06-01] MEDS: SIMVASTATIN 20 MG TABLET PO SCH (20:06)
[2017-06-01] MEDS: SENNOSIDES/DOCUSATE SODIUM 1 EACH TABLET PO SCH (20:06)
[2017-06-02] MEDS: GLIMEPIRIDE 2 MG TABLET PO SCH (07:09)
[2017-06-02] MEDS: CARVEDILOL 12.5 MG TABLET PO SCH ×2 (09:20→20:55)
[2017-06-02] MEDS: ASPIRIN 325 MG TABLET PO SCH ×2 (09:20→20:55)
[2017-06-02] MEDS: FUROSEMIDE 40 MG TABLET PO SCH (09:20)
[2017-06-02] MEDS: amLODIPine BESYLATE 5 MG TABLET PO SCH (09:21)
[2017-06-02] MEDS: MULTIVITAMIN 1 EACH TABLET PO SCH (09:21)
[2017-06-02] MEDS: CALCIUM CARB 500 MG TAB.CHEW PO SCH (09:21)
[2017-06-02] MEDS: CYANOCOBALAMIN 1,000 MCG TABLET PO SCH ×2 (09:21→20:57)
[2017-06-02] MEDS: DONEPEZIL HCL 5 MG TABLET PO SCH (20:54)
[2017-06-02] MEDS: SENNOSIDES/DOCUSATE SODIUM 1 EACH TABLET PO SCH (20:56)
[2017-06-02] MEDS: SIMVASTATIN 20 MG TABLET PO SCH (20:57)
[2017-06-03] MEDS ORDERED: MULTIVITAMIN 1 EACH TABLET ONE (03:36)
[2017-06-03] MEDS: GLIMEPIRIDE 2 MG TABLET PO SCH (07:24)
[2017-06-03] MEDS: ASPIRIN 325 MG TABLET PO SCH ×2 (08:24→20:39)
[2017-06-03] MEDS: CARVEDILOL 12.5 MG TABLET PO SCH ×2 (08:25→20:39)
[2017-06-03] MEDS: amLODIPine BESYLATE 5 MG TABLET PO SCH (08:25)
[2017-06-03] MEDS: FUROSEMIDE 40 MG TABLET PO SCH (08:25)
[2017-06-03] MEDS: MULTIVITAMIN 1 EACH TABLET PO SCH (08:25)
[2017-06-03] MEDS: CALCIUM CARB 500 MG TAB.CHEW PO SCH (08:26)
[2017-06-03] MEDS: CYANOCOBALAMIN 1,000 MCG TABLET PO SCH ×2 (08:26→20:40)
[2017-06-03] MEDS: DONEPEZIL HCL 5 MG TABLET PO SCH (20:39)
[2017-06-03] MEDS: SIMVASTATIN 20 MG TABLET PO SCH (20:40)
[2017-06-03] MEDS: SENNOSIDES/DOCUSATE SODIUM 1 EACH TABLET PO SCH (20:40)
[2017-06-04] MEDS: GLIMEPIRIDE 2 MG TABLET PO SCH (07:29)
[2017-06-04] MEDS: CARVEDILOL 12.5 MG TABLET PO SCH ×2 (09:03→21:34)
[2017-06-04] MEDS: amLODIPine BESYLATE 5 MG TABLET PO SCH (09:04)
[2017-06-04] MEDS: FUROSEMIDE 40 MG TABLET PO SCH (09:04)
[2017-06-04] MEDS: CYANOCOBALAMIN 1,000 MCG TABLET PO SCH ×2 (09:05→21:35)
[2017-06-04] MEDS: CALCIUM CARB 500 MG TAB.CHEW PO SCH (09:05)
[2017-06-04] MEDS: MULTIVITAMIN 1 EACH TABLET PO SCH (09:05)
[2017-06-04] MEDS: ASPIRIN 325 MG TABLET PO SCH ×2 (09:08→21:34)
[2017-06-04] MEDS: DONEPEZIL HCL 5 MG TABLET PO SCH (21:32)
[2017-06-04] MEDS: SENNOSIDES/DOCUSATE SODIUM 1 EACH TABLET PO SCH (21:35)
[2017-06-04] MEDS: SIMVASTATIN 20 MG TABLET PO SCH (21:36)
[2017-06-05] MEDS: GLIMEPIRIDE 2 MG TABLET PO SCH (07:48)
[2017-06-05] MEDS: amLODIPine BESYLATE 5 MG TABLET PO SCH (08:16)
[2017-06-05] MEDS: ASPIRIN 325 MG TABLET PO SCH ×2 (08:16→20:49)
[2017-06-05] MEDS: CALCIUM CARB 500 MG TAB.CHEW PO SCH (08:17)
[2017-06-05] MEDS: CARVEDILOL 12.5 MG TABLET PO SCH ×2 (08:17→20:49)
[2017-06-05] MEDS: FUROSEMIDE 40 MG TABLET PO SCH (08:17)
[2017-06-05] MEDS: NAPROXEN 250 MG TABLET PO PRN (08:17)
[2017-06-05] MEDS: MULTIVITAMIN 1 EACH TABLET PO SCH (08:17)
[2017-06-05] MEDS: CYANOCOBALAMIN 1,000 MCG TABLET PO SCH ×2 (08:17→20:50)
[2017-06-05] MEDS: DONEPEZIL HCL 5 MG TABLET PO SCH (20:47)
[2017-06-05] MEDS: SENNOSIDES/DOCUSATE SODIUM 1 EACH TABLET PO SCH (20:49)
[2017-06-05] MEDS: SIMVASTATIN 20 MG TABLET PO SCH (20:50)
[2017-06-06] MEDS: GLIMEPIRIDE 2 MG TABLET PO SCH (07:26)
[2017-06-06] MEDS: ASPIRIN 325 MG TABLET PO SCH ×2 (08:24→19:55)
[2017-06-06] MEDS: amLODIPine BESYLATE 5 MG TABLET PO SCH (08:24)
[2017-06-06] MEDS: MULTIVITAMIN 1 EACH TABLET PO SCH (08:24)
[2017-06-06] MEDS: CARVEDILOL 12.5 MG TABLET PO SCH ×2 (08:24→19:55)
[2017-06-06] MEDS: FUROSEMIDE 40 MG TABLET PO SCH (08:24)
[2017-06-06] MEDS: CALCIUM CARB 500 MG TAB.CHEW PO SCH (08:25)
[2017-06-06] MEDS: CYANOCOBALAMIN 1,000 MCG TABLET PO SCH ×2 (08:25→19:56)
[2017-06-06] MEDS: DONEPEZIL HCL 5 MG TABLET PO SCH (19:55)
[2017-06-06] MEDS: SIMVASTATIN 20 MG TABLET PO SCH (19:56)
[2017-06-06] MEDS: SENNOSIDES/DOCUSATE SODIUM 1 EACH TABLET PO SCH (19:56)
[2017-06-07] MEDS: GLIMEPIRIDE 2 MG TABLET PO SCH (07:37)
[2017-06-07] MEDS: ASPIRIN 325 MG TABLET PO SCH ×2 (08:38→19:19)
[2017-06-07] MEDS: CARVEDILOL 12.5 MG TABLET PO SCH ×2 (08:38→19:18)
[2017-06-07] MEDS: FUROSEMIDE 40 MG TABLET PO SCH (08:41)
[2017-06-07] MEDS: amLODIPine BESYLATE 5 MG TABLET PO SCH (08:42)
[2017-06-07] MEDS: CALCIUM CARB 500 MG TAB.CHEW PO SCH (08:42)
[2017-06-07] MEDS: MULTIVITAMIN 1 EACH TABLET PO SCH (08:42)
[2017-06-07] MEDS: CYANOCOBALAMIN 1,000 MCG TABLET PO SCH ×2 (08:42→19:18)
[2017-06-07] MEDS: SIMVASTATIN 20 MG TABLET PO SCH (19:19)
[2017-06-07] MEDS: DONEPEZIL HCL 5 MG TABLET PO SCH (19:19)
[2017-06-07] MEDS: SENNOSIDES/DOCUSATE SODIUM 1 EACH TABLET PO SCH (19:19)
--- NOTE | 2017-06-08 07:21 | Discharge Summary ---
Discharge Summary - Discharge Sumary History of Present Illness: Patient is a 81yo white female who has Paget's disease. Developed left hip pain 3 weeks prior to evaluation and was found to have an incomplete left femoral neck hip fracture on MRI scan. Patient denies any recent falls or trauma. Had precutaneous hip pinning done. No noted intra or postoperative complications. Patient continues to have some pain with ambulation and feels unsteady on her feet. Has been transferred to this institution for further rehab services. Home Medications: Ambulatory Orders Medication Instructions Recorded Benazepril HCl [Lotensin] 40 mg PO DAILY 05/12/17 Calcium Citrate [Calcitrate] 200 mg PO DAILY 05/12/17 Carvedilol [Coreg] 12.5 mg PO BID 05/12/17 Cyanocobalamin (Vitamin B-12) 2,500 mcg SL DAILY 05/12/17 [Vitamin B-12] Donepezil HCl 10 mg PO HS 05/12/17 Furosemide [Lasix] 40 mg PO DAILY 05/12/17 Hydrocodone/Acetaminophen [[place] 1 each Q6 PRN 05/12/17 5-325 Tablet] Metformin HCl [Glucophage] 1,000 mg PO BID 05/12/17 Multivit with Calcium,Iron,Min 1 each PO DAILY 05/12/17 [Tab A Leobardo] Naproxen 250 mg PO Q12 PRN 05/12/17 Pravastatin Sodium 40 mg PO DAILY 05/12/17 Sennosides/Docusate Sodium 2 each PO HS 05/12/17 [Docusate Sodium-Senna Tablet] amLODIPine BESYLATE [Norvasc] 5 mg PO DAILY 05/12/17 Aspirin [Oralia] 325 mg PO D #0 06/08/17 Glimepiride 1 mg PO DAILY #0 06/08/17 Tramadol HCl [Ultram] 50 mg PO Q4 PRN #30 tablet 06/08/17 Consultations this Visit: None Procedures this Visit: None Allergies/Adverse Reactions: Allergies Allergy/AdvReac Type Severity Reaction Status Date / Time Penicillins Allergy Severe Anaphylaxis Verified 05/13/17 08:25 latex Allergy Intermediate Itchy Skin Verified 05/13/17 08:25 Discharge Summary: Patient was started on physical and occupational therapy. Patient participated well with the therapy and made significant improvement in her ability of transfer walk. At the time of discharge patient was walking much better but was can considered still to be a fall risk and felt that she would benefit from some outpatient physical therapy. Patient diabetes mellitus remains stable during her hospitalization. Patient did complain of some pain in her left knee. X-rays showed arthritic changes. This did improve some during her hospital stay. Patient hypertension remains stable on her home medications. Patient dementia remains stable without any behavioral issues. - Final Diagnosis (1) Gait disturbance Problems: Improved. patient is ambulating and transfering better then on admission. Will continue with outpatient therapy. (2) Fracture of left hip Problems: Routine healing (3) Diabetes type 2, controlled Problems: Stable (4) Essential hypertension Problems: stable on home meds (5) Paget's disease of bone Problems: at baseline (6) Dementia Problems: stable on home meds (7) Osteoarthritis, knee Problems: will continue with exercises.
[2017-06-08] MEDS: GLIMEPIRIDE 2 MG TABLET PO SCH (07:24)
--- NOTE | 2017-06-08 07:26 | Inpatient Progress Note ---
Subjective - Required Recertification Statement I anticipate X number of days because-include discharge plan: 10 - Review of Systems Events since last encounter: Patient continues to progress and is doing well. The OA in the left knee is improved. Diabetes is stable. Dementia has been stable without any behavioral problems. No constipation issues. Objective - Exam Vitals and I&O: Vital Signs Temp 98.2 F 06/07/17 19:29 Pulse 77 06/07/17 19:30 Resp 16 06/07/17 19:30 BP 148/61 06/07/17 19:29 Pulse Ox 97 06/07/17 19:29 Intake & Output 06/07/17 06/07/17 06/08/17 11:59 23:59 11:59 Intake Total 360 960 Balance 360 960 Intake: Oral 360 960 Other: Voiding Method Toilet Toilet # Voids 2 3 General: Alert, Oriented to Person, Oriented to Place, Oriented to Time, Cooperative Neck: Supple Lungs: Clear to auscultation, Normal air movement, Speaks full Sentences. No: Wheezes, Rales, Rhonchi Cardiovascular: Regular rate, Normal S1, Normal S2 Abdomen: Normal bowel sounds, Soft, No tenderness Extremities: Other (some mild tenderness tot he left hip and knee with ROM. Incision site healed well) Skin: Normal, [place], Warm Neurological: Sensation intact Psych/Mental Status: Mental status NL, Mood NL - Results Results: Laboratory Results WBC 8.00 K/ul (4.00-12.00) 05/15/17 12:45 RBC 4.05 M/ul (3.90-5.20) 05/15/17 12:45 Hgb 12.1 g/dL (12.0-16.0) 05/15/17 12:45 Hct 36.8 % (34.5-46.5) 05/15/17 12:45 MCV 91.0 fl (80.0-100.0) 05/15/17 12:45 MCH 29.8 pg (28.0-34.0) 05/15/17 12:45 MCHC 32.8 g/dL (30.0-36.0) 05/15/17 12:45 RDW 13.1 % (11.3-14.3) 05/15/17 12:45 Plt Count 268 K/mm3 (130-400) 05/15/17 12:45 Neut % (Auto) 70.9 % (39.0-79.0) 05/15/17 12:45 Lymph % (Auto) 17.4 % (16.0-50.0) 05/15/17 12:45 [place] % (Auto) 6.0 % (0.0-11.0) 05/15/17 12:45 Eos % (Auto) 3.8 % (0.0-6.8) 05/15/17 12:45 Baso % (Auto) 0.7 (0.0-1.5) 05/15/17 12:45 Neut # (Auto) 5.7 # k/uL (1.4-7.7) 05/15/17 12:45 Lymph # (Auto) 1.4 # k/uL (0.6-4.0) 05/15/17 12:45 [place] # (Auto) 0.5 # k/uL (0.0-0.9) 05/15/17 12:45 Eos # (Auto) 0.3 # k/uL (0.0-0.6) 05/15/17 12:45 Baso # (Auto) 0.0 # k/uL (0.0-0.5) 05/15/17 12:45 Reactive Lymphs % 1.2 % (0.0-5.0) 05/15/17 12:45 Reactive Lymphs # 0.1 # k/uL (0.0-0.8) 05/15/17 12:45 Sodium 133 mmol/L (136-145) L 05/15/17 12:45 Potassium 4.4 mmol/L (3.5-5.0) 05/15/17 12:45 Chloride 102 mmol/L (98-110) 05/15/17 12:45 Carbon Dioxide 28 mmol/L (20-32) 05/15/17 12:45 BUN 17 mg/dL (10-26) 05/15/17 12:45 Creatinine 0.7 mg/dL (0.4-1.5) 05/15/17 12:45 Estimated Creat Clear 106 05/15/17 12:45 Est GFR ( Amer) > 60 (60-) 05/15/17 12:45 Est GFR (Non-Af Amer) > 60 (60-) 05/15/17 12:45 Glucose 269 mg/dL (70-99) H 05/15/17 12:45 Calcium 9.1 mg/dL (8.5-10.5) 05/15/17 12:45 Total Bilirubin 0.4 mg/dL (0.2-1.2) 05/15/17 12:45 AST 15 U/L (0-41) 05/15/17 12:45 ALT 16 U/L (0-45) 05/15/17 12:45 Alkaline Phosphatase 95 U/L (46-116) 05/15/17 12:45 Total Protein 7.1 g/dL (6.0-8.5) 05/15/17 12:45 Albumin 4.1 g/dL (3.0-5.5) 05/15/17 12:45 Assessment/Plan - Assessment/Plan (1) Gait disturbance Status: Acute Assessment: improving with PT (2) Fracture of left hip Status: Acute Comment: Incomplete due to Paget's disease, precutaneous pinning done Assessment: stable (3) Diabetes type 2, controlled Status: Acute Qualifiers: Diabetes mellitus complication status: without complication Diabetes mellitus skilled nursing insulin use: without joint terminal attack controller use Qualified Code(s): E11.9 - Type 2 diabetes mellitus without complications (4) Essential hypertension Status: Acute (5) Paget's disease of bone Status: Acute (6) Dementia Status: Acute Qualifiers: Dementia type: Alzheimer's disease (7) Osteoarthritis, knee Status: Acute
[2017-06-08] MEDS: FUROSEMIDE 40 MG TABLET PO SCH (08:06)
[2017-06-08] MEDS: amLODIPine BESYLATE 5 MG TABLET PO SCH (08:06)
[2017-06-08] MEDS: CALCIUM CARB 500 MG TAB.CHEW PO SCH (08:06)
[2017-06-08] MEDS: MULTIVITAMIN 1 EACH TABLET PO SCH (08:06)
[2017-06-08] MEDS: ASPIRIN 325 MG TABLET PO SCH (08:06)
[2017-06-08] MEDS: CYANOCOBALAMIN 1,000 MCG TABLET PO SCH (08:06)
[2017-06-08] MEDS: CARVEDILOL 12.5 MG TABLET PO SCH (08:06)
[2017-06-08 12:13] VITALS: BP 138/78
== END 2017-06-08 09:48 | disposition home or self-care (01) | DRG 91 ==
LOC: SOUTH 15:11
PROVIDERS: ADMIT Family Medicine; ATTEND Family Medicine
DX: R26.89 Other abnormalities of gait and mobility (principal); S72.002A Fracture of unspecified part of neck of left femur, initial encounter for closed fracture; E11.9 Type 2 diabetes mellitus without complications; I10 Essential (primary) hypertension; M88.9 Osteitis deformans of unspecified bone; F03.90 Unspecified dementia, unspecified severity, without behavioral disturbance, psychotic disturbance, mood disturbance, and anxiety
CPT/HCPCS: 80053; 85025; 97110; 97112; 97116; 97140; 97162; 97167; 97530; 97535; A9270; J1815

== ENCOUNTER 2018-02-17 08:19 | Emergency (ER) | payer MEDICARE, OTHER ==
--- NOTE | 2018-02-17 08:48 | ED Physician Documentation ---
General Adult - HISTORIAN Historian: patient, paramedics - HPI Stated Complaint: chest pain, sob Chief Complaint: General Adult Timing: better Severity: moderate Further Comments: yes (Pt is an 82 yo female with sob and "chest fullness" this am. Pt was recently d/c'd from [facility] after hip replacement. Pt may not have been wearing the oxygen she was rx'd last evening. Pt is feeling much better upon arrival in ER.) - ROS CONST: no problems EYES/ENT: none CVS/RESP: chest pain ("chest fullness"), shortness of breath GI/: none MS/SKIN/LYMPH: none - PAST HX Past History: other (CAD, CHF, DMII, HLD, HTN, [place], CABG) Surgeries/Procedures: cardiac bypass Allergies/Adverse Reactions: Allergies Allergy/AdvReac Type Severity Reaction Status Date / Time Penicillins Allergy Severe Anaphylaxis Verified 02/17/18 08:50 latex Allergy Intermediate Itchy Skin Verified 02/17/18 08:50 Home Medications: Ambulatory Orders Medication Instructions Recorded Benazepril HCl [Lotensin] 40 mg PO DAILY 05/12/17 Calcium Citrate [Calcitrate] 200 mg PO DAILY 05/12/17 Carvedilol [Coreg] 12.5 mg PO BID 05/12/17 Cyanocobalamin (Vitamin B-12) 2,500 mcg SL DAILY 05/12/17 [Vitamin B-12] Donepezil HCl 10 mg PO HS 05/12/17 Furosemide [Lasix] 40 mg PO DAILY 05/12/17 Hydrocodone/Acetaminophen [[place] 1 each Q6 PRN 05/12/17 5-325 Tablet] Metformin HCl [Glucophage] 1,000 mg PO BID 05/12/17 Multivit with Calcium,Iron,Min 1 each PO DAILY 05/12/17 [Tab A [place]ob[place]] Naproxen 250 mg PO Q12 PRN 05/12/17 Pravastatin Sodium 40 mg PO DAILY 05/12/17 Sennosides/Docusate Sodium 2 each PO HS 05/12/17 [Docusate Sodium-Senna Tablet] amLODIPine BESYLATE [Norvasc] 5 mg PO DAILY 05/12/17 Aspirin [Oralia] 325 mg PO D #0 06/08/17 Glimepiride 1 mg PO DAILY #0 06/08/17 Tramadol HCl [Ultram] 50 mg PO Q4 PRN #30 tablet 06/08/17 - SOCIAL HX Smoking History: non-smoker - FAMILY HX Family History: No - VITAL SIGNS Vital Signs: Vital Signs Temp Pulse Resp BP Pulse Ox 127/66 06/08/17 07:47 - REVIEWED ASSESSMENTS Nursing Assessment Reviewed: Yes Vitals Reviewed: Yes Progress - Progress Progress: CXR: Parenchymal haziness and left base effusion - infiltrate versus increased volume status/CHF. 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) Regular insulin 4 units SC in ER - EKG/XRAY/CT EKG: NSR (HR=73; normal axis; normal [place] interval.) ED Results Lab/Radiology - Orders Orders: ED Orders Category Date Time Status Continuous EKG monitoring Q30M Care 02/17/18 08:39 Ordered Continuous Pulse Oximetry Q30M Care 02/17/18 08:[address] IV Lock 1T Care 02/17/18 08:39 Ordered CHEST 1VIEW [RAD] Stat Exams 02/17/18 Ordered CBC/PLATELET/DIFF Routine Lab 02/17/18 08:39 Ordered CKMB Stat Lab 02/17/18 Ordered CMP Routine Lab 02/17/18 08:39 Ordered CREATINE KINASE Routine Lab 02/17/18 08:39 Ordered NT-proBNP Stat Lab 02/17/18 Ordered TROPONIN I (cTnI) Stat Lab 02/17/18 08:39 Ordered Oxygen Daily Oxygen 02/17/18 08:45 Ordered EKG WITH COMPARISON Stat Ther 02/17/18 08:39 Ordered General Adult Physical Exam - PHYSICAL EXAM GENERAL APPEARANCE: mild distress EENT: pharynx normal NECK: normal inspection, supple RESPIRATORY: no resp distress, chest non-tender, rales CVS: reg rate & rhythm, heart sounds normal ABDOMEN: soft, no organomegaly, normal bowel sounds BACK: normal inspection, no CVA tenderness SKIN: warm/dry, normal color EXTREMITIES: edema (3+ b/l LE edema) NEURO: oriented X3, motor nml, sensation nml Discharge Clincal Impression: CHF, hyperglycemia Referrals: Primary Doctor,No [Primary Care Provider] - Condition: Stable Disposition: 04 XFER CORRECTION Decision to Admit: NO Decision Time: 09:39
[2018-02-17 08:53] LABS: BASOPHILS % 0.5 (0.0-1.5); EOSINOPHILS % 4.5 % (0.0-6.8); MEAN CORPUSCULAR HEMOGLOBIN 29.3 pg (28.0-34.0); MONOCYTES % 5.7 % (0.0-11.0)
[2018-02-17 09:08] LABS: eGFR (African) > 60; eGFR (Non-African) > 60
[2018-02-17] MEDS ORDERED: FUROSEMIDE 20 MG/2 ML VIAL IVP ONE (09:21)
[2018-02-17] MEDS ORDERED: FUROSEMIDE 20 MG/2 ML VIAL ONE (09:22)
[2018-02-17] MEDS ORDERED: INSULIN REGULAR, HUMAN 100 UNIT/ML 3ML VIAL SQ ONE (09:38)
[2018-02-17] MEDS ORDERED: INSULIN REGULAR, HUMAN 100 UNIT/ML 3ML VIAL ONE (09:42)
[2018-02-17 10:20] VITALS: BP 170/64
--- NOTE | 2018-02-17 10:27 | Diagnostic Imaging Report ---
[facility] [address] [facility] [address] [place], [place]. [address] Report Submission Date: Feb 17, 2018 9:13:19 AM CDT Patient Study Name: EDGARD FREDERICK Date: Feb 17, 2018 8:47:52 AM CDT Modality Type: DX Gender: F Description: CHEST : 39 Institution: [facility] Physician: CANDY FRAZIER Examination: Portable chest History: Evaluate lungs. PT STATES SOB,COUGH,CHEST PAIN. PT UNABLE TO TAKE IN DEEP INSPIRATION (Hx) Comparison exam: None provided. Findings: Single view of the chest demonstrates a prominent cardiac and mediastinal silhouette. Sternotomy wires. Diffuse parenchymal haziness. Obscuration of the left lung base. Articular degenerative changes. Impression: Parenchymal haziness and left base effusion - infiltrate versus increased volume status/CHF. Electronically signed on Feb 17, 2018 9:13:19 AM CDT by: Umesh PRASAD
[2018-02-18 07:02] LABS: APPEARANCE,URINE CLEAR (CLEAR); COLOR,URINE YELLOW (YELLOW); OCCULT BLOOD,URINE NEGATIVE (NEGATIVE); UROBILINOGEN URINE 0.2 Eu (0.2-1.0)
== END 2018-02-17 10:18 ==
LOC: ED 08:19
DX: I50.9 Heart failure, unspecified (principal); E11.649 Type 2 diabetes mellitus with hypoglycemia without coma; I10 Essential (primary) hypertension; E78.5 Hyperlipidemia, unspecified; I25.810 Atherosclerosis of coronary artery bypass graft(s) without angina pectoris
CPT/HCPCS: 71045; 80053; 81002; 82550; 82553; 83880; 84484; 85025; 93005; 96372; 96374; 99284; J1815; J1940; S1016

== ENCOUNTER 2018-03-16 06:54 | Emergency (ER) | payer MEDICARE, OTHER ==
--- NOTE | 2018-03-16 07:22 | ED Physician Documentation ---
General Adult - HISTORIAN Historian: patient (poor historian), paramedics - HPI Stated Complaint: SOB Chief Complaint: General Adult Additional Information: More SOB this morning. Has been using oxygen for the last month. Says she had some distal CP yesterday that was worse with cough. Denies fever, sweats, worsened cough. 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 Recevided neb in ambulance and feels better at the time of the exam. Denies recent antibiotics. - ROS CONST: denies: fever, sweating CVS/RESP: shortness of breath, cough - PAST HX Past History: hypertension, other (Paget's; pulmonary hypertension; dementia; HLD; aortic stenosis) Other History: diabetes Type 2 Surgeries/Procedures: other (L knee, unknown procedure; heart, unknown procedure) Allergies/Adverse Reactions: Allergies Allergy/AdvReac Type Severity Reaction Status Date / Time Penicillins Allergy Severe Anaphylaxis Verified 02/17/18 08:50 latex Allergy Intermediate Itchy Skin Verified 02/17/18 08:50 Home Medications: Ambulatory Orders Medication Instructions Recorded Calcium Citrate [Calcitrate] 200 mg PO DAILY 05/12/17 Carvedilol [Coreg] 12.5 mg PO BID 05/12/17 Cyanocobalamin (Vitamin B-12) 2,500 mcg SL DAILY 05/12/17 [Vitamin B-12] Donepezil HCl 10 mg PO HS 05/12/17 Furosemide [Lasix] 40 mg PO DAILY 05/12/17 Metformin HCl [Glucophage] 1,000 mg PO BID 05/12/17 Multivit with Calcium,Iron,Min 1 each PO DAILY 05/12/17 [Tab A Leobardo] Pravastatin Sodium 40 mg PO DAILY 05/12/17 Aspirin [Oralia] 325 mg PO D #0 06/08/17 Glimepiride 1 mg PO DAILY #0 06/08/17 Benazepril HCl [Lotensin] 40 mg PO DAILY 03/16/18 Naproxen Sodium [All Day Relief] 220 mg PO BID 03/16/18 Potassium Chloride [Klor-Con 10] 10 meq PO DAILY 03/16/18 - SOCIAL HX Smoking History: non-smoker - FAMILY HX Family History: No - VITAL SIGNS Vital Signs: Vital Signs Temp Pulse Resp BP Pulse Ox 170/64 02/17/18 10:18 - REVIEWED ASSESSMENTS Nursing Assessment Reviewed: Yes Vitals Reviewed: Yes Progress - Progress Progress: Patient Study Name: EDGARD FREDERICK Date: Mar 16, 2018 7:21:57 AM CDT Modality Type: DX Gender: F Description: CHEST : 39 Institution: [facility] Physician: KYRA WATKINS - HISTORY: 82-year-old female with SOA COMPARISON: 02/17/2018 TECHNIQUE: Single portable AP view of the chest was performed. FINDINGS: Cardiomegaly and postoperative changes of the heart are re- identified. There is prominence of the central pulmonary vasculature, improved since the previous chest x-ray. Probable bilateral pleural effusions. No pneumothorax. IMPRESSION: Cardiomegaly and postoperative changes of the heart with bilateral pleural effusions and central pulmonary vascular congestion, consistent with CHF. This has improved since the previous chest x-ray performed on 02/17/2018. Electronically signed on Mar 16, 2018 7:48:09 AM CDT by: Tono Richardson [id number], pt discussed with Dr. Walker. Labs and cxr reviewed. Will send he home and Dr. Walker will adjust he rmeds. - EKG/XRAY/CT EKG: NSR, nonspecific ST T wave chg Comments: none available for comparison ED Results Lab/Radiology - Orders Orders: ED Orders Category Date Time Status Continuous EKG monitoring Q1H Care 03/16/18 07:[address] IV Lock 1T Care 03/16/18 07:17 Active CHEST 1VIEW [RAD] Stat Exams 03/16/18 Ordered BLOOD CULTURE Stat Lab 03/16/18 Ordered BNP [NT-proBNP] Stat Lab 03/16/18 Ordered CBC/PLATELET/DIFF Routine Lab 03/16/18 Ordered CMP [CMP] Routine Lab 03/16/18 Ordered TROPONIN I (cTnI) Stat Lab 03/16/18 Ordered Oxygen Daily Oxygen 03/16/18 07:15 Ordered EKG WITH COMPARISON Stat Ther 03/16/18 Ordered General Adult Physical Exam - PHYSICAL EXAM GENERAL APPEARANCE: mild distress EENT: eye inspection normal, ENT inspection normal, pharynx normal (Mallampati 1 ), no nystagmus NECK: normal inspection, supple RESPIRATORY: no resp distress, breath sounds normal, rales (occasional) CVS: reg rate & rhythm, murmur (SEM3/6) ABDOMEN: soft, normal bowel sounds, non-tender BACK: normal inspection, no CVA tenderness (no vertebral tenderness) SKIN: warm/dry, other (brawny skin changes ant lower legs, L>>R) EXTREMITIES: no evidence of injury, edema (non-pitting) NEURO: CN's nml as tested, motor nml, sensation nml, cognition normal Discharge Clincal Impression: Dyspnea Qualifiers: Dyspnea type: shortness of breath Qualified Code(s): R06.02 - Shortness of breath; R06.00 - Dyspnea, unspecified; R06.01 - Orthopnea CHF (congestive heart failure) Qualifiers: Heart failure type: unspecified Heart failure chronicity: acute on chronic Qualified Code(s): I50.9 - Heart failure, unspecified Referrals: Primary Doctor,No [REFERRING] - 2 Days Condition: Good Disposition: 01 HOME, SELF-CARE Decision to Admit: NO Decision Time: 09:07
[2018-03-16 08:09] LABS: BASOPHILS % 0.3 (0.0-1.5); EOSINOPHILS % 2.3 % (0.0-6.8); MEAN CORPUSCULAR HEMOGLOBIN 27.9 pg (28.0-34.0); MEAN CORPUSCULAR VOLUME 91.1 fl (80.0-100.0); MONOCYTES % 3.8 % (0.0-11.0); NEUTROPHILS # 13.2 # k/uL (1.4-7.7)
[2018-03-16 08:11] LABS: eGFR (African) > 60; eGFR (Non-African) > 60
[2018-03-16 09:43] VITALS: BP 161/63
--- NOTE | 2018-03-16 19:01 | Diagnostic Imaging Report ---
KYRA WATKINS [facility] [address] [facility] [address] [address] Report Submission Date: Mar 16, 2018 7:48:09 AM CDT Patient Study Name: EDGARD FREDERICK Date: Mar 16, 2018 7:21:57 AM CDT Modality Type: DX Gender: F Description: CHEST : 39 Institution: [facility] Physician: KYRA WATKINS HISTORY: 82-year-old female with SOA COMPARISON: 02/17/2018 TECHNIQUE: Single portable AP view of the chest was performed. FINDINGS: Cardiomegaly and postoperative changes of the heart are re- identified. There is prominence of the central pulmonary vasculature, improved since the previous chest x-ray. Probable bilateral pleural effusions. No pneumothorax. IMPRESSION: Cardiomegaly and postoperative changes of the heart with bilateral pleural effusions and central pulmonary vascular congestion, consistent with CHF. This has improved since the previous chest x-ray performed on 02/17/2018. Electronically signed on Mar 16, 2018 7:48:09 AM CDT by: Tono PRASAD
== END 2018-03-16 09:42 | disposition home or self-care (01) ==
LOC: ED 06:54
DX: I50.9 Heart failure, unspecified (principal); I10 Essential (primary) hypertension; E11.9 Type 2 diabetes mellitus without complications; R06.01 Orthopnea
CPT/HCPCS: 71045; 80053; 83880; 84484; 85025; 87040; 99283; S1016